=== PATIENT | female | born 1985 | race Caucasian/White ===

== ENCOUNTER 2019-12-23 20:42 | Emergency (ER) | payer OTHER, SELFPAY ==
--- NOTE | ~2019-12-23 | XR_ITS ---
EXAMINATION: XR tibia fibula LT 2V DATE: 12/23/2019 21:17 INDICATION: Medial left ankle pain post fall TECHNIQUE: Anteroposterior and lateral views of the left tibia and fibula were obtained. COMPARISON: Left ankle radiographs dated 12/23/2019 FINDINGS: Alignment is normal. No fracture. Joint spaces at the left knee are normal on nonweightbearing imagin g. No left knee joint effusion. Soft tissues are unremarkable. IMPRESSION: 1. Negative left tibia/fibula radiographs. Reviewed, dictated and finalized at location A. HT STEWARD
--- NOTE | ~2019-12-23 | XR_ITS ---
EXAMINATION: XR ankle LT min 3V DATE: 12/23/2019 20:56 INDICATION: Medial left ankle pain post fall TECHNIQUE: Anteroposterior, oblique, mortise, and lateral views of the left ankle were obtained. COMPARISON: None. FINDINGS: Alignment is normal. No fracture. Joint spaces are well maintained. No ankle joint effusion. Modera te-sized plantar calcaneal spur. Soft tissue swelling about the medial malleolus. IMPRESSION: 1. No acute osseous abnormality. Reviewed, dictated and finalized at location A. PROC[employer]ING [employer]IPMENT REPA[employer]ER
[2019-12-23 20:44] VITALS: BP 128/58; PULSE 66; RESP 18; TEMP 36.5; O2SAT 100
--- NOTE | 2019-12-23 21:06 | ED.LOWEXIN ---
HPI - Extremity Injury (Lower) General Chief Complaint: Extremity Injury, Lower Stated Complaint: L LEG PAIN Time Seen by Provider: 12/23/19 20:47 Source: patient and RN notes reviewed Mode of arrival: ambulatory Limitations: no limitations History of Present Illness HPI Narrative: Pt is a 34 y/o female who presents to the ED with c/o left ankle pain which started prior to arrival to the ED. Pt states she was walking in the rain, trying to get something from her car, when she slipped and fell. She denies a head injury or LOC secondary to the fall. However, she reports she rolled her left ankle which has been causing the pain now. She states her pain radiates up to her left calf, but denies left knee pain. Pt does reports left ankle edema. She denies taking any pain medication to relieve her symptoms. MD complaint: ankle injury (left ankle) Onset (ago): unknown (prior to arrival to the ED sometime) Place: home (outside on the driveway) Relieving factors: nothing Exacerbating factors: nothing Context: fall (slipped and rolled her left ankle) Associated symptoms: swelling (to the left ankle) Related Data Allergies Allergy/AdvReac Type Severity Reaction Status Date / Time No Known Allergies Allergy Verified 11/29/18 16:46 Review of Systems Review of Systems: All systems reviewed & are unremarkable except as noted in HPI and below Constitutional: Constitutional: Denies other (head injury) Cardiovascular: Cardiovascular: Reports other (left ankle swelling) Musculoskeletal: Musculoskeletal: Reports arthralgias (left ankle pain) and Denies other (left knee pain) Neurologic: Denies other (LOC secondary to the fall) [facility] Past Medical History Medical History (Updated 12/23/19 @ 21:34 by Ahsan Larkin DO) Congenital heart disease IBS (irritable bowel syndrome) Surgical History Surgical History (Updated 12/23/19 @ 21:14 by Caitlin Navarro) H/O: hysterectomy Hx of cholecystectomy Hx of tonsillectomy Social History Social History (Updated 12/23/19 @ 21:14 by Caitlin Navarro) Smoking status: Never smoker Gender identity (if verbalized by the patient): Female Exam Narrative: Exam Narrative: APPEARANCE: No acute distress, nontoxic, resting in bed Eyes: EOMI HEENT: Normocephalic, atraumatic, RESPIRATORY: No respiratory distress MUSCULOSKELETAl: Tender to palpation over left medial ankle mild swelling with no ecchymosis, no tenderness over the anterior or lateral ankle, mild tenderness over the anterior tibia, no proximal fibula tenderness no tenderness over the base of the fifth metatarsal, dorsalis pedis pulse 2+, neurovascular intact NEURO: Awake and alert. Following commands, speech normal, no focal deficits SKIN:: Warm, dry. Normal Color no rash or lesions Course Course Emergency Course: Discussed with patient results of workup and diagnosis. Discussed need for follow-up with primary care, proper use of medication, and reasons to return to the emergency department. Patient understands and agrees to current treatment plan Vital Signs Vital signs: Vital Signs Temperature 97.7 F 12/23/19 20:44 Pulse Rate 66 12/23/19 20:44 Respiratory Rate 18 12/23/19 20:44 Blood Pressure 128/58 L 12/23/19 20:44 Pulse Oximetry 100 12/23/19 20:44 Temperature 97.7 F 12/23/19 20:44 Pulse Rate 66 12/23/19 20:44 Respiratory Rate 18 12/23/19 20:44 Blood Pressure 128/58 L 12/23/19 20:44 Pulse Oximetry 100 12/23/19 20:44 MDM - Extremity Injury (Lower) Imaging Data Radiologist's impression: ITS Impressions Ankle X-Ray 12/23/19 21:01 IMPRESSION: 1. No acute osseous abnormality. ITS Impressions Ankle X-Ray 12/23/19 21:01 IMPRESSION: 1. No acute osseous abnormality. Tibia/Fibula X-Ray 12/23/19 21:29 IMPRESSION: 1. Negative left tibia/fibula radiographs. Discharge Plan Discharge Clinical Impression: Left ankle sprain Patient Disposition: [facility]
[2019-12-23] MEDS: IBUPROFEN 600 MG TABLET PO (21:20)
== END 2019-12-23 22:25 | disposition home or self-care (01) ==
PROVIDERS: Emergency Provider Emergency Medicine
DX: S93.402A Sprain of unspecified ligament of left ankle, initial encounter (principal); K58.9 Irritable bowel syndrome, unspecified; Z87.74 Personal history of (corrected) congenital malformations of heart and circulatory system; W01.0XXA Fall on same level from slipping, tripping and stumbling without subsequent striking against object, initial encounter
CPT/HCPCS: 73590; 73610; 99284; A9270

== ENCOUNTER 2019-12-24 14:45 | Emergency (ER) | payer OTHER, SELFPAY ==
--- NOTE | ~2019-12-24 | XR_ITS ---
EXAMINATION: XR knee LT 3V DATE: 12/24/2019 15:39 INDICATION: Left knee injury and pain. TECHNIQUE: 4 views of left knee were obtained. COMPARISON: Left tibia and fibula radiographs 12/23/2019 FINDINGS: Bone alignment is normal. No fracture. There is mild osteoarthritis of medial and lateral c ompartments characterized by tiny marginal osteophytes. No knee joint effusion. IMPRESSION: 1. Mild left knee osteoarthritis. Reviewed, dictated and finalized at location A. MANAGER
[2019-12-24 14:57] VITALS: BP 138/67; PULSE 57; RESP 18; TEMP 36.6; O2SAT 100
--- NOTE | 2019-12-24 15:15 | ED.GENADULT ---
HPI - General Adult General Chief complaint: Extremity Injury, Lower Stated complaint: L/knee pain Time Seen by Provider: 12/24/19 15:15 Source: patient and RN notes reviewed Mode of arrival: ambulatory Limitations: no limitations History of Present Illness HPI narrative: 34-year-old female presents with complains of increase left lateral knee pain and swelling for 1 day. Ibuprofen with little relief. Fell in yard and landed on LT side with ankle and knee taking the force. Sarkis says she was treated in the ED on 12/23/19 for pain in LT ankle and foot. No radiation of pain. No numbness or tingling, or bleeding. No loss of mobility. Exacerbating factor consist of bearing weight and manipulation. No fever or chills. Denies nausea, vomiting, and abdominal pain. Remains active. Sarkis denies being , LMP hysterectomy July 2019. Some parts of this dictation were generated by voice recognition software and may contain typographical and/or grammatical inaccuracies. Related Data Allergies Allergy/AdvReac Type Severity Reaction Status Date / Time No Known Allergies Allergy Verified 12/24/19 15:01 Review of Systems Review of Systems: Narrative: CONSTITUTIONAL: Denies fever, chills, sweats. EYES: Denies visual changes, redness, discharge. ENT: Denies rhinorrhea, congestion, sore throat, otalgia. CARDIOVASCULAR: Denies chest pain, palpitations, edema. RESPIRATORY: Denies dyspnea, wheezing, cough. GASTROINTESTINAL: Denies abdominal pain, nausea, vomiting, diarrhea. GENITOURINARY: Denies dysuria, hematuria, abnormal discharge. SKIN: Denies rash or itching. MUSCULOSKELETAL: Denies acute back pain or myalgia. Complains of Left lateral knee pain and swelling. NEUROLOGIC: Denies numbness, or focal weakness. PSYCHIATRIC: Denies anxiety or depression. All other systems reviewed & are unremarkable except as noted in HPI and below. [facility] Past Medical History Medical History Congenital heart disease IBS (irritable bowel syndrome) Surgical History Surgical History H/O: hysterectomy Hx of cholecystectomy Hx of tonsillectomy Family History Family History (Updated 12/24/19 @ 15:32 by ISABELLA Hidalgo) Grandparent Cancer Social History Social History (Updated 12/24/19 @ 15:32 by ISABELLA Hidalgo) Smoking status: Never smoker Second hand tobacco smoke exposure: No Alcohol intake: never Substance use: never Living arrangements: with family Gender identity (if verbalized by the patient): Female Comments At time of signature, agree with nurse past medical, surgical, social, and family history. There is no relevant family history pertinent to the presenting complaint. Exam Narrative: Exam Narrative: GENERAL: This is a well-nourished, well-developed patient, in no apparent distress. Talks in full sentences and ambulates with LT antalgic gait without dyspnea. HEAD: normocephalic, atraumatic. EYES: PERRL. Sclera clear/white. Vision is grossly intact. CARDIOVASCULAR: Regular rate and rhythm without murmurs, gallops, or rubs. RESPIRATORY: Clear to auscultation. Breath sounds equal bilaterally. No wheezes, rales, or rhonchi. GASTROINTESTINAL: Abdomen soft, non-tender, nondistended. Bowel sounds are active. No hepato-splenomegaly, or palpable masses. No guarding. SKIN: warm, intact with no suspicious lesions or rash, good texture and turgor. NEURO: awake, alert, and oriented to person, place and time. There were no obvious focal neurologic abnormalities. EXTREMITIES: No clubbing, cyanosis, or edema. LT lateral knee moderate tenderness on palpation and manipulation, no significant swelling, no deformity, acitve and passive ROM tenderness noted with full extension and flexion. No erythema, no ulceration. No effusion. Normal DP pulse. Normal CAP refill to toes. Compartment soft. Negative a
== END 2019-12-24 16:05 | disposition home or self-care (01) ==
PROVIDERS: Emergency Provider Nurse Practitioner Family
DX: S83.92XA Sprain of unspecified site of left knee, initial encounter (principal); W19.XXXA Unspecified fall, initial encounter
CPT/HCPCS: 73562; 99213; G0463

== ENCOUNTER 2020-06-06 14:26 | Emergency (ER) | payer OTHER, SELFPAY ==
[2020-06-06 14:41] VITALS: BP 150/68; PULSE 74; RESP 16; TEMP 36.8; O2SAT 100
--- NOTE | 2020-06-06 14:51 | ED.WOUNDLAC ---
HPI - Wound/Laceration General Chief Complaint: Wound/Laceration Stated Complaint: Insect Bite Time Seen by Provider: 06/06/20 14:45 Source: patient Mode of arrival: ambulatory Limitations: no limitations History of Present Illness HPI narrative: Sarkis Wilkins is a 34 yo female with no PMH who is here for 4x4 area on L upper back that started 3 days ago- thought it was a spider bite and is itching but tender.States it has gotten worse in last 3 days-looks like small spider bite; tender only to touch. Verbal ointment on area with limited relief; tried cortisone and antibiotic creams Related Data Allergies Allergy/AdvReac Type Severity Reaction Status Date / Time No Known Allergies Allergy Verified 12/24/19 15:01 Review of Systems Review of Systems: Narrative: CONSTITUTIONAL: Denies fever, chills, sweats. EYES: Denies visual changes, redness, discharge. ENT: Denies rhinorrhea, congestion, sore throat, otalgia. CARDIOVASCULAR: Denies chest pain, palpitations, edema. RESPIRATORY: Denies dyspnea, wheezing, cough GASTROINTESTINAL: Denies abdominal pain, nausea, vomiting, diarrhea. GENITOURINARY: Denies dysuria, hematuria, abnormal discharge SKIN: 4 x 4 red tender area that is also pruritic to left upper back NEUROLOGIC: Denies numbness, or focal weakness. PSYCHIATRIC: Denies anxiety or depression. [facility] Past Medical History Medical History Congenital heart disease IBS (irritable bowel syndrome) Surgical History Surgical History H/O: hysterectomy Hx of cholecystectomy Hx of tonsillectomy Family History Family History Grandparent Cancer Social History Social History (Updated 06/06/20 @ 14:55 by Clarissa Avelar CNP) Smoking status: Former smoker Second hand tobacco smoke exposure: No Alcohol intake: current Substance use: never Gender identity (if verbalized by the patient): Female Comments At time of signature, I agree with nursing past medical, surgical, social and family history. There is no relevant family history pertinent to the presenting complaint. Blood pressure elevated at time of visit; patient is aware of need to follow-up Exam Narrative: Exam Narrative: GENERAL: This is a well-nourished, well-developed patient, in mild distress. HEAD: normocephalic, atraumatic. EYES: PERRL. Sclera clear/white. Vision is grossly intact. EARS: External ears normal, Hearing grossly intact. NOSE: External nose normal without nasal discharge, nares without redness, no rhinorrhea. THROAT: Mucous membranes moist, NECK: Neck supple, CARDIOVASCULAR: Regular rate and rhythm without murmurs, gallops, or rubs. RESPIRATORY: Clear to auscultation. Breath sounds equal bilaterally. No wheezes, rales, or rhonchi. GASTROINTESTINAL: Abdomen soft, SKIN: warm, intact with 4 x 4 reddened area with scaling; , non indurated, mild tenderness no surrounding focal erythema NEURO: awake, alert, and oriented to person, place and time. There were no obvious focal neurologic abnormalities. Steady gait EXTREMITIES: Normal range of motion. BACK: Nontender without deformity Course Course Emergency Course: Started prednisone cream to area plus Bactrim Keep area clean and dry Follow-up with PCP Vital Signs Vital signs: Vital Signs Temperature 98.3 F 06/06/20 14:41 Pulse Rate 74 06/06/20 14:41 Respiratory Rate 16 06/06/20 14:41 Blood Pressure 150/68 H 06/06/20 14:41 Pulse Oximetry 100 06/06/20 14:41 Temperature 98.3 F 06/06/20 14:41 Pulse Rate 74 06/06/20 14:41 Respiratory Rate 16 06/06/20 14:41 Blood Pressure 150/68 H 06/06/20 14:41 Pulse Oximetry 100 06/06/20 14:41 MDM - Wound/Laceration Differential Diagnosis Differential diagnosis: Likely laceration, abscess, abrasion, avulsion of skin and other (Spider or insect bit
== END 2020-06-06 15:02 | disposition home or self-care (01) ==
PROVIDERS: Emergency Provider Nurse Practitioner
DX: S20.462A Insect bite (nonvenomous) of left back wall of thorax, initial encounter (principal); W57.XXXA Bitten or stung by nonvenomous insect and other nonvenomous arthropods, initial encounter; Z87.891 Personal history of nicotine dependence; Q24.9 Congenital malformation of heart, unspecified
CPT/HCPCS: 99213; G0463

== ENCOUNTER 2022-10-25 12:44 | Emergency (ER) | payer OTHER, SELFPAY ==
[2022-10-25 14:13] VITALS: BP 125/79; PULSE 63; RESP 16; TEMP 36.6; O2SAT 98
--- NOTE | 2022-10-25 14:37 | ED.URI ---
HPI - URI/Sore Throat General Chief Complaint: Upper Respiratory Infection Stated Complaint: fever,cough,runny nose Time Seen by Provider: 10/25/22 14:20 Source: patient Mode of arrival: ambulatory Limitations: no limitations History of Present Illness HPI Narrative: Sarkis is a 37-year-old female patient presenting to clinic today with complaints of fever, cough, runny nose times 3 days. She denies any known exposure to anybody with COVID, flu, or strep MD elicited complaint: sore throat and nasal congestion Related Data Home Medications Medication Instructions Recorded Confirmed No Home Medications 10/25/22 10/25/22 Allergies Allergy/AdvReac Type Severity Reaction Status Date / Time No Known Allergies Allergy Verified 10/25/22 14:19 Review of Systems Review of Systems: Pertinent positives per HPI. Patient denies any fever, chills, rash, headache, visual changes, dizziness, shortness of breath, chest pain, palpitations, nausea, vomiting, diarrhea, constipation, abdominal pain, or any urinary issues. [facility] Past Medical History Medical History Congenital heart disease IBS (irritable bowel syndrome) Surgical History Surgical History History of abdominal supracervical subtotal hysterectomy (07/27/18) supra cervical abdominal hysterectomy--menometrorrhagia, enlarged uterus, adhesions History of 09/29/07 primary c/s--failure to progress 12/23/10 rpt c/s 10/19/12 rpt c/s History of endometrial ablation (~2014) failed ablation--doctor perforated cervix Hx of cholecystectomy (~2015) Hx of tonsillectomy Family History Family History Grandparent Cancer Diabetes mellitus Maternal grandfather Acute myocardial infarction paternal grandfather Sibling Malignant tumor of cervix sister Mother Hypertension Social History Social History Smoking status: Former smoker Second hand tobacco smoke exposure: No Alcohol intake: current Substance use: never Gender identity (if verbalized by the patient): Female Comments At the time of my signature, I reviewed and agree with the nursing past medical, surgical, social, and family history. There is no relevant family history pertinent to the patient complaint. Exam Narrative: General: Well-developed, well nourished, in no apparent distress Head: Normocephalic, atraumatic Eyes: Pupils equally round and reactive to light bilaterally, EOM intact, sclera and conjunctive clear, no discharge, lids normal Ears: TMs intact and clear, ear canals clear, no drainage, grossly hearing normal. Nose: Nares patent, clear nasal discharge, no inflammation, no sinus tenderness. Mouth: Oral pharynx without lesions or masses, good dentition, MMM. Oropharynx red Neck: Supple, trachea midline, no enlargement of anterior or posterior cervical nodes, no thyroid masses or goiter palpable. Cardio: Regular rate and rhythm, s1 and s2 normal, no murmur appreciated. Resp: Clear to auscultation bilaterally, no rhonchi, rales, wheezing or rubs Course Course Emergency Course: Portions of this record may have been created with voice recognition software. Level of Care: Express Care Visit Vital Signs Vital signs: Vital Signs Temperature 36.6 C 10/25/22 14:13 Pulse Rate 63 10/25/22 14:13 Respiratory Rate 16 10/25/22 14:13 Blood Pressure 125/79 10/25/22 14:13 Pulse Oximetry 98 10/25/22 14:13 Oxygen Delivery Room Air 10/25/22 14:13 Temperature 36.6 C 10/25/22 14:13 Pulse Rate 63 10/25/22 14:13 Respiratory Rate 16 10/25/22 14:13 Blood Pressure 125/79 10/25/22 14:13 Pulse Oximetry 98 10/25/22 14:13 Oxygen Delivery Room Air 10/25/22 14:13 Vital signs reviewed
--- NOTE | 2022-10-25 14:50 | ED.URI ---
HPI - URI/Sore Throat General Chief Complaint: Upper Respiratory Infection Stated Complaint: fever,cough,runny nose Time Seen by Provider: 10/25/22 14:20 Source: patient Mode of arrival: ambulatory Limitations: no limitations History of Present Illness HPI Narrative: Sarkis is a 37-year-old female patient presenting to clinic today with complaints of fever, chills, cough, body aches, runny nose, sore throat, headache, and nasal congestion x3 days. MD elicited complaint: sore throat and nasal congestion Related Data Home Medications Medication Instructions Recorded Confirmed No Home Medications 10/25/22 10/25/22 Allergies Allergy/AdvReac Type Severity Reaction Status Date / Time No Known Allergies Allergy Verified 10/25/22 14:19 Review of Systems Review of Systems: Pertinent positives per HPI. Patient denies any rash, headache, visual changes, dizziness, shortness of breath, chest pain, palpitations, nausea, vomiting, diarrhea, constipation, abdominal pain, or any urinary issues. PMF Past Medical History Medical History Congenital heart disease IBS (irritable bowel syndrome) Surgical History Surgical History History of abdominal supracervical subtotal hysterectomy (07/27/18) supra cervical abdominal hysterectomy--menometrorrhagia, enlarged uterus, adhesions History of 09/29/07 primary c/s--failure to progress 12/23/10 rpt c/s 10/19/12 rpt c/s History of endometrial ablation (~2014) failed ablation--doctor perforated cervix Hx of cholecystectomy (~2015) Hx of tonsillectomy Family History Family History Grandparent Cancer Diabetes mellitus Maternal grandfather Acute myocardial infarction paternal grandfather Sibling Malignant tumor of cervix sister Mother Hypertension Social History Social History Smoking status: Former smoker Second hand tobacco smoke exposure: No Alcohol intake: current Substance use: never Gender identity (if verbalized by the patient): Female Comments At the time of my signature, I reviewed and agree with the nursing past medical, surgical, social, and family history. There is no relevant family history pertinent to the patient complaint. Exam Narrative: General: Well-developed, morbidly obese, in no apparent distress Head: Normocephalic, atraumatic Eyes: Pupils equally round and reactive to light bilaterally, EOM intact, sclera and conjunctive clear, no discharge, lids normal Ears: TMs intact and clear, ear canals clear, no drainage, grossly hearing normal. Nose: Nares patent, clear nasal discharge, moderate inflammation, no sinus tenderness. Mouth: Oral pharynx without lesions or masses, good dentition, MMM. Oropharynx red, postnasal drip Neck: Supple, trachea midline, no enlargement of anterior or posterior cervical nodes, no thyroid masses or goiter palpable. Cardio: Regular rate and rhythm, s1 and s2 normal, no murmur appreciated. Resp: Clear to auscultation bilaterally, no rhonchi, rales, wheezing or rubs Course Course Emergency Course: Portions of this record may have been created with voice recognition software. Level of Care: Express Care Visit Vital Signs Vital signs: Vital Signs Temperature 36.6 C 10/25/22 14:13 Pulse Rate 63 10/25/22 14:13 Respiratory Rate 16 10/25/22 14:13 Blood Pressure 125/79 10/25/22 14:13 Pulse Oximetry 98 10/25/22 14:13 Oxygen Delivery Room Air 10/25/22 14:13 Temperature 36.6 C 10/25/22 14:13 Pulse Rate 63 10/25/22 14:13 Respiratory Rate 16 10/25/22 14:13 Blood Pressure 125/79 10/25/22 14:13 Pulse Oximetry 98 10/25/22 14:13 Oxygen Delivery Room Air 10/25/22 14:13 Vital signs reviewed
== END 2022-10-25 14:56 | disposition home or self-care (01) ==
PROVIDERS: Emergency Provider Nurse Practitioner Family
DX: B34.9 Viral infection, unspecified (principal); J06.9 Acute upper respiratory infection, unspecified; J02.9 Acute pharyngitis, unspecified; Z20.822 Contact with and (suspected) exposure to COVID-19; Z87.891 Personal history of nicotine dependence; Q24.9 Congenital malformation of heart, unspecified
CPT/HCPCS: 87081; 87426; 87804; 87880; 99213; C9803; G0463

== ENCOUNTER 2022-11-15 17:22 | Emergency (ER) | payer OTHER, SELFPAY ==
[2022-11-15 17:29] VITALS: BP 149/88; PULSE 123; RESP 16; TEMP 36.9; O2SAT 96
--- NOTE | 2022-11-15 17:52 | ED.URI ---
HPI - URI/Sore Throat General Chief Complaint: Upper Respiratory Infection Stated Complaint: Cough,Body Aches,Headache Time Seen by Provider: 11/15/22 17:37 Source: patient Mode of arrival: ambulatory Limitations: no limitations History of Present Illness HPI Narrative: Patient presents today complaining of cough, body aches, headache, fever up to 103.1. Symptoms began this morning. She has been taking [id number] cold and flu medication without relief. Currently rates her pain 8/10. Reports sick contact with her daughters have a, ?viral infection. ? Related Data Home Medications Medication Instructions Recorded Confirmed No Home Medications 10/25/22 11/15/22 Allergies Allergy/AdvReac Type Severity Reaction Status Date / Time No Known Allergies Allergy Verified 11/15/22 17:26 Review of Systems Review of Systems: CONSTITUTIONAL: Denies chills, or sweats.+ body aches, fever EYES: Denies visual changes, redness, or discharge. ENT: Denies rhinorrhea, congestion, sore throat, or otalgia. CARDIOVASCULAR: Denies chest pain, palpitations, or edema. RESPIRATORY: Denies dyspnea.+ cough GASTROINTESTINAL: Denies abdominal pain, nausea, vomiting, or diarrhea. GENITOURINARY: Denies dysuria or hematuria. SKIN: Denies rash, itching, or wounds. MUSCULOSKELETAL: Denies back pain, joint pain, or myalgia. NEUROLOGIC: Denies numbness, tingling, or weakness.+ headache PSYCH: Denies depression or anxiety. [facility] Past Medical History Medical History Congenital heart disease IBS (irritable bowel syndrome) Surgical History Surgical History History of abdominal supracervical subtotal hysterectomy (07/27/18) supra cervical abdominal hysterectomy--menometrorrhagia, enlarged uterus, adhesions History of 09/29/07 primary c/s--failure to progress 12/23/10 rpt c/s 10/19/12 rpt c/s History of endometrial ablation (~2014) failed ablation--doctor perforated cervix Hx of cholecystectomy (~2015) Hx of tonsillectomy Family History Family History Grandparent Cancer Diabetes mellitus Maternal grandfather Acute myocardial infarction paternal grandfather Sibling Malignant tumor of cervix sister Mother Hypertension Social History Social History Smoking status: Former smoker Second hand tobacco smoke exposure: No Alcohol intake: current Substance use: never Living arrangements: with family Gender identity (if verbalized by the patient): Female Comments At time of signature, I have reviewed and agree with nursing past medical, surgical, social and family history unless otherwise noted. Please see nursing chart for further information. There is no relevant family history pertinent to the presenting complaint Exam Narrative: GENERAL: Mildly ill-appearing, well-nourished, and in no acute distress. HEAD: Normocephalic, atraumatic. EYES: EOMI. No redness or drainage. Conjunctivae normal. ENT: Mucous membranes pink and moist. Nares clear. No rhinorrhea. TMs normal bilaterally. Throat normal. Uvula midline. NECK: Normal AROM. Supple. No lymphadenopathy. CHEST: No respiratory distress. Clear to auscultation. HEART: Regular rhythm. + tachycardia. No murmur appreciated. Normal peripheral pulses. EXTREMITIES: Normal range of motion. No edema. SKIN: Warm, dry, no rash. Capillary refill normal. Normal skin turgor. NEURO: No focal deficits. Alert and oriented x3. Gait steady. PSYCH: Normal affect. No signs of depression or anxiety. Course Course Level of Care: Express Care Visit Vital Signs Vital signs: Vital Signs Temperature 98.4 F 11/15/22 17:29 Pulse Rate 123 H 11/15/22 17:29 Respiratory Rate 16 11/15/22 17:29 Blood
== END 2022-11-15 18:00 | disposition home or self-care (01) ==
PROVIDERS: Emergency Provider Nurse Practitioner
DX: J06.9 Acute upper respiratory infection, unspecified (principal); Z87.891 Personal history of nicotine dependence; Q24.9 Congenital malformation of heart, unspecified
CPT/HCPCS: 87804; 99213; G0463

== ENCOUNTER 2023-08-04 16:00 | Emergency (ER) | payer OTHER, SELFPAY ==
--- NOTE | 2023-08-04 16:07 | ED.URI ---
HPI - URI/Sore Throat General Chief Complaint: Upper Respiratory Infection Stated Complaint: Cough,Diarrhea,Body Aches Time Seen by Provider: 08/04/23 16:07 Source: patient Mode of arrival: ambulatory Limitations: no limitations History of Present Illness HPI Narrative: Sarkis is a 37-year-old female patient presenting to the clinic today with complaints of cough, shortness of breath, congestion, diarrhea, and body aches x1 day. She reports no known fever or chills. States she is just having some shortness of breath with her cough. Cough is nonproductive at this time. No known exposure to anyone with COVID, flu, or strep. MD elicited complaint: cough and other (Body aches, diarrhea) Related Data Allergies Allergy/AdvReac Type Severity Reaction Status Date / Time No Known Allergies Allergy Verified 08/04/23 16:12 Review of Systems Review of Systems: Pertinent positives per HPI. Patient denies any fever, chills, rash, headache, visual changes, dizziness, chest pain, palpitations, nausea, vomiting, constipation, abdominal pain, or any urinary issues. [facility] Past Medical History Medical History Congenital heart disease IBS (irritable bowel syndrome) Surgical History Surgical History History of abdominal supracervical subtotal hysterectomy (07/27/18) supra cervical abdominal hysterectomy--menometrorrhagia, enlarged uterus, adhesions History of 09/29/07 primary c/s--failure to progress 12/23/10 rpt c/s 10/19/12 rpt c/s History of endometrial ablation (~2014) failed ablation--doctor perforated cervix Hx of cholecystectomy (~2015) Hx of tonsillectomy Family History Family History Grandparent Cancer Diabetes mellitus Maternal grandfather Acute myocardial infarction paternal grandfather Sibling Malignant tumor of cervix sister Mother Hypertension Social History Social History Smoking status: Former smoker Second hand tobacco smoke exposure: No Alcohol intake: current Substance use: never Living arrangements: with family Gender identity (if verbalized by the patient): Female Comments At the time of my signature, I reviewed and agree with the nursing past medical, surgical, social, and family history. There is no relevant family history pertinent to the patient complaint. Exam Narrative: General: Well-developed, well nourished, in no apparent distress Head: Normocephalic, atraumatic Eyes: Pupils equally round and reactive to light bilaterally, EOM intact, sclera and conjunctive clear, no discharge, lids normal Ears: TMs intact and clear, ear canals clear, no drainage, grossly hearing normal. Nose: Nares patent, no discharge, no inflammation, no sinus tenderness. Mouth: Oral pharynx without lesions or masses, good dentition, MMM. Neck: Supple, trachea midline, no enlargement of anterior or posterior cervical nodes, no thyroid masses or goiter palpable. Cardio: Regular rate and rhythm, s1 and s2 normal, no murmur appreciated. Resp: Clear to auscultation bilaterally, no rhonchi, rales, wheezing or rubs Course Course Emergency Course: Portions of this record may have been created with voice recognition software. Level of Care: Express Care Visit Vital Signs Vital signs: Vital signs reviewed MDM - URI/Sore Throat MDM Narrative Medical decision making narrative: At the time of visit patient is resting comfortably on the exam table. COVID, flu, and strep test were performed. COVID testing was positive. Flu and strep were negative. We will send for strep culture. Patient has not had COVID vaccinations and she is complaining of some shortness of breath and is morbidly obese. Will place the patient on [facility]
[2023-08-04 16:08] VITALS: BP 132/79; PULSE 89; RESP 18; TEMP 36.8; O2SAT 99
== END 2023-08-04 16:30 | disposition home or self-care (01) ==
PROVIDERS: Emergency Provider Nurse Practitioner Family
DX: U07.1 COVID-19 (principal); Z87.891 Personal history of nicotine dependence; Q24.9 Congenital malformation of heart, unspecified
CPT/HCPCS: 87081; 87426; 87804; 87880; 99213; C9803; G0463

== ENCOUNTER 2023-10-23 15:11 | Emergency (ER) | payer OTHER, SELFPAY | END 2023-10-23 16:00 | disposition left against medical advice (07) | LOC: EXPTROY 15:13 | PROVIDERS: Emergency Provider Nurse Practitioner; PCP Nurse Practitioner Family | DX: Z53.21 Procedure and treatment not carried out due to patient leaving prior to being seen by health care provider (principal) | CPT/HCPCS: 99199 ==

== ENCOUNTER 2023-12-29 18:35 | Emergency (ER) | payer OTHER, SELFPAY ==
[2023-12-29 18:46] VITALS: BP 146/99; PULSE 57; RESP 18; TEMP 36.2; O2SAT 100
--- NOTE | 2023-12-29 19:19 | ED.DENTAL ---
HPI - Dental/Oral General Chief complaint: Dental/Oral Stated complaint: toothache Source: patient, RN notes reviewed and old records reviewed Mode of arrival: ambulatory Limitations: no limitations History of Present Illness HPI Narrative: 38-year-old female presents to [facility] with complaints of left upper molar pain for 2 days. Patient unable to get into the dentist until January 27. Patient denies fever, headache, ear pain, throat pain or discharge. Patient able to control secretions and tolerate fluids by mouth. Patient denies allergies. Patient endorses history asthma, the sections, hysterectomy, cholecystectomy, tonsillectomy. Related Data Allergies Allergy/AdvReac Type Severity Reaction Status Date / Time No Known Allergies Allergy Verified 12/29/23 19:12 Review of Systems Review of Systems: All systems reviewed & are unremarkable except as noted in HPI and below Constitutional: Constitutional: Reports as per HPI, Reports no additional constitutional complaints, Denies body ache(s), Denies chills and Denies fever(s) Eyes: Eyes: Reports no additional eye complaints ENT: Denies bleeding gums, Reports dental pain, Denies dysphagia, Denies ear discharge, Denies hoarseness, Denies nasal congestion and Denies sore throat Cardiovascular: Cardiovascular: Reports no additional cardiovascular complaints, Denies chest pain and Denies dyspnea Respiratory: Respiratory: Reports no additional respiratory complaints, Denies cough and Denies dyspnea Musculoskeletal: Musculoskeletal: Reports no additional musculoskeletal complaints Neurologic: Reports system reviewed and no additional complaints, except as documented Psychiatric: Psychiatric: Reports no additional psychiatric complaints PMFSH Past Medical History Medical History Congenital heart disease IBS (irritable bowel syndrome) Surgical History Surgical History History of abdominal supracervical subtotal hysterectomy (07/27/18) supra cervical abdominal hysterectomy--menometrorrhagia, enlarged uterus, adhesions History of 09/29/07 primary c/s--failure to progress 12/23/10 rpt c/s 10/19/12 rpt c/s History of endometrial ablation (~2014) failed ablation--doctor perforated cervix Hx of cholecystectomy (~2015) Hx of tonsillectomy Family History Family History Grandparent Cancer Diabetes mellitus Maternal grandfather Acute myocardial infarction paternal grandfather Sibling Malignant tumor of cervix sister Mother Hypertension Social History Social History Smoking status: Former smoker Second hand tobacco smoke exposure: No Alcohol intake: current Substance use: never Living arrangements: with family Gender identity (if verbalized by the patient): Female Comments At the time of my signature, I reviewed and agree with the nursing past medical, surgical, social, and family history. There is no relevant family history pertinent to the patient complaint. Exam Const: General: cooperative, healthy appearing, comfortable, no acute distress, alert and well nourished Nutritional Appearance: well nourished Orientation/consciousness: patient oriented x3 Limitations: no limitations HENMT: Head: normal to inspection Ears: external ears normal Face/Nose/Sinus: Normal external nose present, Normal nares present, normal facial exam, No erythema and No edema Face and sinus: normal facial exam, no erythema and no edema Mouth: Yes Normal oral and palatal mucosa present Teeth and gingiva: abnormal tooth and associated gingiva, caries, gingiva abnormal hypertrophic, edematous and tender; without any purulent discharge and poor dentition Throat: posterior oropharynx normal and uvula mi
== END 2023-12-29 19:26 | disposition home or self-care (01) ==
PROVIDERS: Emergency Provider Nurse Practitioner Family; PCP Nurse Practitioner Family
DX: K02.9 Dental caries, unspecified (principal); K04.7 Periapical abscess without sinus; Z87.891 Personal history of nicotine dependence; Q24.9 Congenital malformation of heart, unspecified; J45.909 Unspecified asthma, uncomplicated
CPT/HCPCS: 99213; G0463

== ENCOUNTER 2024-03-29 17:18 | Emergency (ER) | payer OTHER, SELFPAY ==
[2024-03-29 17:32] VITALS: BP 105/81; PULSE 89; RESP 18; TEMP 36.7; O2SAT 99
--- NOTE | 2024-03-29 17:44 | ED.SKABFB ---
HPI - Skin/Abscess/Foreign Bdy General Chief complaint: Wound/Laceration Stated complaint: bite left arm Time Seen by Provider: 03/29/24 17:30 Source: patient and RN notes reviewed Mode of arrival: ambulatory Limitations: no limitations History of Present Illness HPI narrative: Patient presents today complaining of an insect bite to her left upper arm that occurred 2 days ago. She did not see what kind of insect bit her. Subsequently she had a small blister form which has since ruptured and she has some redness surrounding this area. He does have itching and pain to the area only with pressure. She has tried no treatment prior to arrival. Related Data Allergies Allergy/AdvReac Type Severity Reaction Status Date / Time No Known Allergies Allergy Verified 03/29/24 17:34 Review of Systems Review of Systems: CONSTITUTIONAL: Denies body aches, fever, chills, or sweats. EYES: Denies visual changes, redness, or discharge. ENT: Denies rhinorrhea, congestion, sore throat, or otalgia. CARDIOVASCULAR: Denies chest pain, palpitations, or edema. RESPIRATORY: Denies cough or dyspnea. GASTROINTESTINAL: Denies abdominal pain, nausea, vomiting, or diarrhea. GENITOURINARY: Denies dysuria or hematuria. SKIN: + insect bite to left upper arm MUSCULOSKELETAL: Denies back pain, joint pain, or myalgia. NEUROLOGIC: Denies headache, numbness, tingling, or weakness. PSYCH: Denies depression or anxiety. [facility] Past Medical History Medical History Congenital heart disease IBS (irritable bowel syndrome) Surgical History Surgical History History of abdominal supracervical subtotal hysterectomy (07/27/18) supra cervical abdominal hysterectomy--menometrorrhagia, enlarged uterus, adhesions History of 09/29/07 primary c/s--failure to progress 12/23/10 rpt c/s 10/19/12 rpt c/s History of endometrial ablation (~2014) failed ablation--doctor perforated cervix Hx of cholecystectomy (~2015) Hx of tonsillectomy Family History Family History Grandparent Cancer Diabetes mellitus Maternal grandfather Acute myocardial infarction paternal grandfather Sibling Malignant tumor of cervix sister Mother Hypertension Social History Social History Smoking status: Former smoker Second hand tobacco smoke exposure: No Alcohol intake: current Substance use: never Living arrangements: with family Gender identity (if verbalized by the patient): Female Comments At time of signature, I have reviewed and agree with nursing past medical, surgical, social and family history unless otherwise noted. Please see nursing chart for further information. There is no relevant family history pertinent to the presenting complaint Exam Narrative: GENERAL: Well-appearing, well-nourished, and in no acute distress. HEAD: Normocephalic, atraumatic. EYES: EOMI. No redness or drainage. Conjunctivae normal. ENT: Mucous membranes pink and moist. NECK: Normal AROM. CHEST: No respiratory distress. EXTREMITIES: Left arm: He by 4 cm area of faint erythema to the left medial upper arm with 2 x 1 cm area hyperpigmentation in the center. Mildly tender to palpation. No induration, fluctuance noted. No edema. Distal sensation intact. Capillary refill normal. Full range of motion of the elbow and wrist. SKIN: Warm, dry, no rash. Capillary refill normal. Normal skin turgor. NEURO: No focal deficits. Alert and oriented x3. Gait steady. PSYCH: Normal affect. No signs of depression or anxiety. Course Course Level of Care: Express Care Visit Vital Signs Vital signs: Vital Signs Temperature 98.1 F 03/29/24 17:32 Pulse Rate 89 03/29/24 17:32 Respiratory Rate 18
== END 2024-03-29 18:04 | disposition home or self-care (01) ==
PROVIDERS: Emergency Provider Nurse Practitioner; PCP Nurse Practitioner Family
DX: S40.862A Insect bite (nonvenomous) of left upper arm, initial encounter (principal); W57.XXXA Bitten or stung by nonvenomous insect and other nonvenomous arthropods, initial encounter; Z87.891 Personal history of nicotine dependence; Q24.9 Congenital malformation of heart, unspecified
CPT/HCPCS: 99213; G0463

== ENCOUNTER 2025-01-08 15:28 | Emergency (ER) | payer OTHER, SELFPAY ==
--- NOTE | ~2025-01-08 | XR_ITS ---
XR ankle RT min 3V Ordering provider: Lisandro Solis APRN History: . lateral ankle pain/injury/rolled ankle yesterday . Comparison: October 30, 2018 FINDINGS: BONES: No acute fracture or dislocation. JOINT SPACES: Normal. SOFT TISSUES: Swelling seen over the medial and lateral malleoli. IMPRESSION: No acute osseous abnormality of the right ankle. Soft tissue swelling over the medial and lateral malleoli. Reviewed, dictated and finalized at location A.
--- NOTE | 2025-01-08 15:30 | ED_ITS ---
HPI - Extremity Injury (Lower) General Chief Complaint: Extremity Injury, Lower Stated Complaint: RT Ankle injury Time Seen by Provider: 01/08/25 15:29 Source: patient Mode of arrival: ambulatory Limitations: no limitations History of Present Illness HPI Narrative: Sarkis is a 39-year-old female patient presenting to the clinic today with complaints of right ankle injury/pain x1 day. She reports she was walking on a sidewalk yesterday and got too close to the edge and rolled her ankle. Is complaining of pain and swelling to the right lateral ankle, pain is worse with ambulation. She has not taken anything for pain. Related Data Allergies Allergy/AdvReac Type Severity Reaction Status Date / Time No Known Allergies Allergy Verified 01/08/25 15:46 Review of Systems Review of Systems: Pertinent positives per HPI. Patient denies any fever, chills, rash, headache, visual changes, dizziness, cough, runny nose, sore throat, shortness of breath, chest pain, palpitations, nausea, vomiting, diarrhea, constipation, abdominal pain, or any urinary issues. [facility] Past Medical History Medical History IBS (irritable bowel syndrome) Congenital heart disease Surgical History Surgical History History of endometrial ablation (~2014) failed ablation--doctor perforated cervix History of abdominal supracervical subtotal hysterectomy (07/27/18) supra cervical abdominal hysterectomy--menometrorrhagia, enlarged uterus, adhesions History of 09/29/07 primary c/s--failure to progress 12/23/10 rpt c/s 10/19/12 rpt c/s Hx of cholecystectomy (~2015) Hx of tonsillectomy Family History Family History Grandparent Cancer Diabetes mellitus Maternal grandfather Acute myocardial infarction paternal grandfather Sibling Malignant tumor of cervix sister Mother Hypertension Social History Social History Smoking status: Former smoker Second hand tobacco smoke exposure: No Alcohol intake: current Substance use: never Living arrangements: with family Gender identity (if verbalized by the patient): Female Comments At the time of my signature, I reviewed and agree with the nursing past medical, surgical, social, and family history. There is no relevant family history pertinent to the patient complaint. Exam Narrative: General: Well-developed, morbidly obese, in no apparent distress Head: Normocephalic, atraumatic. Cardio: Regular rate and rhythm, s1 and s2 normal, no murmur appreciated. Resp: Clear to auscultation bilaterally, no rhonchi, rales, wheezing or rubs. Musculoskeletal: No deformity, localized swelling to the right lateral malleolus, tenderness to palpation over this area, pain with valgus and varus maneuvers as well as dorsal flexion and plantar flexion without laxity, grossly normal range of motion, muscle strength strong and equal, peripheral pulse strong, no edema, no cyanosis, normal gait and station Course Course Emergency Course: Portions of this record may have been created with voice recognition software. Level of Care: Express Care Visit Vital Signs Vital signs: Vital Signs Temperature 36.3 C L 01/08/25 15:42 Pulse Rate 68 01/08/25 15:42 Respiratory Rate 17 01/08/25 15:42 Blood Pressure 134/71 01/08/25 15:42 Pulse Oximetry 98 01/08/25 15:42 Oxygen Delivery Room Air 01/08/25 15:42 Temperature 36.3 C L 01/08/25 15:42 Pulse Rate 68 01/08/25 15:42 Respiratory Rate 17 01/08/25 15:42 Blood Pressure 134/71 01/08/25 15:42 Pulse Oximetry 98 01/08/25 15:42 Oxygen Delivery Room Air 01/08/25 15:42 Vital signs reviewed MDM - Extremity Injury (Lower) MDM Narrative Medical decision making narrative: At the time of visit patient is resting comfortably on the exam table. Patient appears to be nontoxic. Diagnostics: X-ray of the right ankle was performed and was negative for any acute fracture or malalignment. Plan: I suspect patient has a right ankle sprain. Manolo wrap was applied. Supportive measures were discussed with the patient and they voiced understanding discharge instructions and agrees to treatment plan. Return precautions reviewed Differential Diagnosis Differential diagnosis: Likely ankle sprain and strain and ankle fracture Imaging Data Radiologist's impression: ITS Impressions Ankle X-Ray 01/08/25 16:04 IMPRESSION: No acute osseous abnormality of the right ankle. Soft tissue swelling over the medial and lateral malleoli. Discharge Plan Discharge Clinical Impression: Right ankle sprain Qualifiers: Encounter type: initial encounter Involved ligament of ankle: unspecified ligament Qualified Code(s): S93.401A - Sprain of unspecified ligament of right ankle, initial encounter Patient Disposition: Home, Self-Care Condition: Stable Instructions: Antibiotic Form, Ankle Sprain (ED) Additional Instructions: X-ray of the right ankle is negative for any sign of fracture or malalignment. Rest, ice, elevate, and wear manolo wrap as directed Wear supportive footwear for your ankle Tylenol/motrin for pain as discussed. Gradually bear weight No running or sports until healed. Follow up with your PCP if symptoms persist more than 1 week. Patient Language: Pashto Follow-up/Referrals: PHYSICIAN,NATURAL RESOURCE SPECIALIST [Primary Care Provider] - Time of Disposition: 16:04 Quality NIHSS Nursing Documentation ED NIHSS nursing documentation: reviewed/agree
[2025-01-08 15:42] VITALS: BP 134/71; PULSE 68; RESP 17; TEMP 36.3; O2SAT 98
--- OUTSIDE RECORDS SUMMARY | 2025-01-08 17:26 | XMS_ITS | Clinical Summary ---
Author Organization [facility] Address [address] [place] [id number] Care Team Providers Care Corral Boss Name Role Phone None, Provider Primary Care Provider Unavaila ble Social History Tobacco Use Types Packs/Day Years Used Date Smoking Tobacco: Never Assessed Comments Unknown Sex and Gender Information Value Date Recorded Sex Assigned at Not on file Legal Sex Female 8:00 AM CDT Gender Identity Not on file Sexual Orientation Not on file Last Filed Vital Signs Vital Sign Reading Time Taken Comments Blood Pressure 110/72 12/07/2017 9:03 AM PRIMARY TEACHING ASSISTANT Pulse 62 12/07/2017 9:03 AM PRIMARY TEACHING ASSISTANT Temperature - - Respiratory Rate - - Oxygen Saturation - - Inhaled Oxygen Concentration - - Weight 129.3 kg (285 lb) 12/07/2017 9:03 AM PRIMARY TEACHING ASSISTANT Height 177.8 cm (5' 10 ) 12/07/2017 9:03 AM PRIMARY TEACHING ASSISTANT Body Mass Index 40.89 12/07/2017 9:03 AM PRIMARY TEACHING ASSISTANT Plan of Treatment Health Maintenance Due Date Last Done Comments Cervical Cancer Screening Pap Smear (Age 30 to 64) Every 3 Years 1987 Annual Physical 1990 Hepatitis C 2005 DTaP, Tdap and Td Vaccines (1 - Tdap) 2006 06/23/1994, 06/03/1988, 02/05/1988, Additional history exists Hepatitis B Vaccines (1 of 3 - 19+ 3-dose series) 2006 Cervical Cancer Screening Pap with HPV Testing (Age 30 to 64) Every 5 Years 2017 Cervical Cancer Screening with HPV 2017 COVID-19 Vaccine (2023-25 season) 2024 Influenza Adult (#1) 2024 HPV Vaccines Aged Out No longer eligi ble based on patient's age to complete this topic Meningococcal B Vaccine Aged Out No l onger eligible based on patient's age to complete this topic Meningococcal Vaccine Aged Out No dara chepe eligible based on patient's age to complete this topic Pneumococcal Vaccine: Pediatrics (0 to 5 Years) and At-Risk Patients (6 to 64 Years) Aged Out No longer eligible based on patient's age to complete this topic RSV Immunizations Under 20 Months Aged Out No longer eligible based on patient's age to complete this topic Insurance [employer] Advance Directives Documents on File Type Date Recorded Patient Wage Conciliator Expl anation Advance Directives and Living Will 01/16/2014 12:00 AM ADVANCED DIRECTIVES Advance Directives and Living Will 01/16/2014 12:00 AM ADVANCED DIRECTIVES Advance Directives and Living Will 01/14/2014 12:00 AM ADVANCED DIRECTIVES Advance Directives and Living Will 03/26/2013 12:00 AM ADVANCED DIRECTIVES Advance Directives and Living Will 02/16/2013 12:00 AM ADVANCED DIRECTIVES Care Teams Corral Boss Relationship Specialty Start Date End Date None, Provider, PCP - General 07/31/20
== END 2025-01-08 16:15 | disposition home or self-care (01) ==
PROVIDERS: Emergency Provider Nurse Practitioner Family
DX: S93.401A Sprain of unspecified ligament of right ankle, initial encounter (principal); X50.9XXA Other and unspecified overexertion or strenuous movements or postures, initial encounter; Z87.891 Personal history of nicotine dependence; K58.9 Irritable bowel syndrome, unspecified; Q24.9 Congenital malformation of heart, unspecified
CPT/HCPCS: 73610; 99213; G0463